=== PATIENT | female | born 1960 | race Caucasian/White ===

== ENCOUNTER 2020-11-06 07:00 | Day surgery (SDC) | payer OTHER ==
[~2020-11-06] VITALS: Ht 160 cm; Wt 78.9 kg
[~2020-11-06 07:00] MED LIST: IBUPROFEN400 MG PO
--- NOTE | 2020-11-06 08:38 | NUR ---
11/06/20 0838 Jess Sheikh 0830- PT ARRIVES TO PACU EASILY AROUSABLE TO VOICE. PT REPORTS NO DIZZINESS, NAUSEA, OR PAIN. PT KEEPS HER EYES CLOSED. RESP EVEN AND UNLABROED. OXYGEN SAT MID TO HIGH 90'S ON RA.
--- NOTE | 2020-11-07 08:34 | OR ---
[facility] [address] [place], [place] [address] Signed DATE OF OPERATION: 11/06/2020 SURGEON: Laura Lieberman MD PREOPERATIVE DIAGNOSIS: Hyperplastic colorectal polyps in 2009. POSTOPERATIVE DIAGNOSES: 1. Minimal sigmoid diverticulosis. 2. 4 mm polyps at 45 cm, 18 cm, 15 cm, 4 cm. PROCEDURE: Colonoscopy with hot biopsy. ESTIMATED BLOOD LOSS: None. INDICATIONS: Louann is a 60-year-old female, asked to see me for followup colonoscopy. She had hyperplastic colon and rectal polyps removed back in 2009. No significant changes since then. No lower GI complaints. No family history of colon cancer or polyps. In the office, I gave her a pamphlet on colonoscopy and we looked at that together along with the risk including, but not limited to gas, bloating, crampy abdominal pain, bleeding, perforation requiring surgery, and missed diagnosis. We also discussed the need for IV conscious sedation. She had expressed understanding and wished to proceed. PROCEDURE NOTE: Louann was taken into our endoscopy suite and placed in the left lateral decubitus position. She was given a total of 4 mg of Versed and 150 mcg of fentanyl to cover the case. A digital rectal exam was performed and this was unremarkable. The adult colonoscope was introduced and advanced all around into the cecum under direct visualization of camera without difficulty. Her prep was quite excellent. We could easily see the appendiceal orifice and the ileocecal valve. The scope was slowly withdrawn. The above-mentioned polyps were easily removed with the help of hot biopsy forceps. She does have just a few diverticuli in the sigmoid colon. They were small in size, few in number, and scattered about. We did see an old polypectomy site in the proximal rectum. The scope had been retroflexed and there was no additional pathology noted above the anal canal. After this, the gas was suctioned out and the colonoscope removed. Louann tolerated the procedure quite well. Electronically Signed By: LAURA LIEBERMAN MD 11/07/20 0834 PATIENT NAME: LOUANN VAZQUEZ OPERATIVE REPORT DATE OF : 60 REPORT #: [id number] PHYSICIAN: LAURA LIEBERMAN MD PCP: MECHELLE MI PA-C REPORT IS CONFIDENTIAL AND NOT TO BE RELEASED WITHOUT AUTHORIZATION [address] [address] Signed RECOMMENDATIONS: I will see Louann back in my office in 7 to 14 days to review her results. It appears she will probably stay on the 10-year rotation. MD DARWIN Zarco/THUL /[id number] cc: MD Mechelle Zarco PA Copies: LAURA LIEBERMAN MD ~ Electronically Signed By: LAURA LIEBERMAN MD 11/07/20 0834 PATIENT NAME: LOUANN VAZQUEZ OPERATIVE REPORT DATE OF : 60 REPORT #: [id number] PHYSICIAN: LAURA LIEBERMAN MD PCP: MECHELLE MI PA-C REPORT IS CONFIDENTIAL AND NOT TO BE RELEASED WITHOUT AUTHORIZATION
--- NOTE | 2020-11-07 16:46 | PATH ---
[facility] [address] [place], [place] [address] Signed SPECIMEN(S): A DISTAL SIGMOID POLYP AT 18 CM SPECIMEN(S): B COLON POLYP AT 45 CM SPECIMEN(S): C COLON POLYP AT 15 CM SPECIMEN(S): D RECTAL POLYP AT 4 CM SPECIMEN SOURCE: A. DISTAL SIGMOID POLYP AT 18 CM B. COLON POLYP AT 45 CM C. COLON POLYP AT 15 CM D. RECTAL POLYP AT 4 CM CLINICAL HISTORY: Colonoscopy with possible biopsy/polypectomy. History of polyps. Post: Colon polyps, diverticulosis, rectal polyp. MICROSCOPIC DESCRIPTION: Histologic sections of all submitted blocks are examined by light microscopy. These findings, together with the gross examination, support the pathologic diagnosis. FINAL PATHOLOGIC DIAGNOSIS: A. Colon, distal sigmoid, polyp at 18 cm, polypectomy: - Cauterized colorectal mucosa with mild hyperplastic mucosal changes. - Negative for dysplasia or malignancy. B. Colon, polyp at 45 cm, polypectomy: - Colonic mucosa with no histopathologic abnormality. - Negative for dysplasia or malignancy. C. Colon, polyp at 15 cm, polypectomy: - Hyperplastic polyp. - Negative for dysplasia or malignancy. D. Rectum, polyp at 4 cm, polypectomy: - Cauterized hyperplastic polyp. - Negative for dysplasia or malignancy. NAL:cml:C2NR GROSS DESCRIPTION: Four specimens are received in four containers, labeled "DS." A. The specimen, labeled "DS, 1," and designated on the requisition "distal sigmoid polyp at 18 cm," is received in formalin and consists of one golden soft tissue fragment that measures 0.3 cm in greatest dimension. The specimen is entirely submitted in cassette (A1). B. The specimen, labeled "DS, 2," and designated on the requisition "colon PATIENT NAME: LOUANN VAZQUEZ PATHOLOGY DATE OF : 60 REPORT #: [id number] PHYSICIAN: ARIEL CEE PCP: MECHELLE MI PA-C REPORT IS CONFIDENTIAL AND NOT TO BE RELEASED WITHOUT AUTHORIZATION [facility] [address] [place], [place] [address] Signed polyp at 45 cm," is received in formalin and consists of one golden soft tissue fragment that measures 0.3 cm in greatest dimension. The specimen is entirely submitted in cassette (B1). C. The specimen, labeled "DS, 3," and designated on the requisition "colon polyp at 15 cm," is received in formalin and consists of one golden soft tissue fragment that measures 0.3 cm in greatest dimension. The specimen is entirely submitted in cassette (C1). D. The specimen, labeled "DS, 4," and designated on the requisition "rectal polyp at 4 cm," is received in formalin and consists of one golden soft tissue fragment that measures 0.3 cm in greatest dimension. The specimen is entirely submitted in cassette (D1). AT (under the direct supervision of a pathologist) The Gross Description was prepared using a voice recognition system. The report was reviewed for accuracy; however, sound-alike word errors, addition and/or deletions may occur. If there is any question about this report, please contact Client Services. PERFORMING LABORATORY: The technical component was performed by [facility], [address] [place] [id number] ([employer]: Jayde Morales MD; CLIA# [id number]). Professional interpretation was performed by [facility], [facility], [address] [address] (CLIA# [id number]). Diagnostician: Ermelinda Orourke MD Pathologist Electronically Signed 11/07/2020 Copies: ~ PATIENT NAME: LOUANN VAZQUEZ PATHOLOGY DATE OF : 60 REPORT #: [id number] PHYSICIAN: ARIEL CEE PCP: MECHELLE MI PA-C REPORT IS CONFIDENTIAL AND NOT TO BE RELEASED WITHOUT AUTHORIZATION
== END 2020-11-06 09:12 | disposition home or self-care (01) ==
LOC: OPS 07:00 → DS 07:00 → OPS 08:15 → DS 09:00 → OPS 09:12 → DS 09:15
PROVIDERS: ATTEND Colon & Rectal Surgery
PROC: 0DBE8ZX Excision of Large Intestine, Via Natural or Artificial Opening Endoscopic, Diagnostic (ICD-10-PCS; 2020-11-06)
PROC: 0DBN8ZX Excision of Sigmoid Colon, Via Natural or Artificial Opening Endoscopic, Diagnostic (ICD-10-PCS; 2020-11-06)
PROC: 0DBP8ZX Excision of Rectum, Via Natural or Artificial Opening Endoscopic, Diagnostic (ICD-10-PCS; principal; 2020-11-06 08:15)
DX: Z12.11 Encounter for screening for malignant neoplasm of colon (principal); K63.5 Polyp of colon; K62.1 Rectal polyp; K57.30 Diverticulosis of large intestine without perforation or abscess without bleeding; M19.90 Unspecified osteoarthritis, unspecified site; Z86.010 Personal history of colon polyps
CPT/HCPCS: 99153; G0500; J2250; J3010; J7121